=== PATIENT | male | born 1990 | race African-American/Black ===

== ENCOUNTER 2017-06-19 11:02 | Emergency (ER) | payer SELFPAY ==
[~2017-06-19] VITALS: Ht 180.3 cm; Wt 76.2 kg
--- NOTE | 2017-06-19 11:41 | Emergency Room Report ---
History of Present Illness General Chief Complaint: Medical Clearance Source: Patient Present Illness HPI 26-year-old male presents ED for evaluation. Patient brought in by [employer] and EMS. Patient found running through streets naked. Patient brought here for behavioral evaluation. Patient denies any suicidal or homicidal ideation. Denies hearing voices. Denies drug use. Denies any prior psychiatric history. No other aggravating or relieving factors. Denies any other associated symptoms Allergies: Coded Allergies: No Known Allergies (Unverified , 06/19/17) Patient History Past Medical History: none Past Surgical History: none Pertinent Family History: none Social History: Denies: smoking, alcohol use, drug use Immunizations: UTD Reviewed Nursing Documentation: PMH: Agreed; PSxH: Agreed Nursing Documentation-PMH Past Medical History: No Stated History Review of Systems All Other Systems: negative except mentioned in HPI Physical Exam Vital Signs Date Time Temp Pulse Resp B/P (MAP) Pulse Ox O2 Delivery O2 Flow Rate FiO2 06/19/17 10:56 97.5 116 20 140/72 98 Room Air 97.5 Sp02 EP Interpretation: reviewed, normal General Appearance: no apparent distress, alert, GCS 15, non-toxic Head: normocephalic, atraumatic Eyes: bilateral eye normal inspection, bilateral eye PERRL ENT: hearing grossly normal, normal pharynx, no angioedema, normal voice Neck: full range of motion, supple/symm/no masses Respiratory: chest non-tender, lungs clear, normal breath sounds, speaking full sentences Cardiovascular #1: regular rate, rhythm, no edema Cardiovascular #2: 2+ carotid (R), 2+ carotid (L), 2+ radial (R), 2+ radial (L) , 2+ dorsalis pedis (R), 2+ dorsalis pedis (L) Gastrointestinal: normal bowel sounds, non tender, soft, non-distended, no guarding, no rebound Rectal: deferred Genitourinary: normal inspection, no CVA tenderness Musculoskeletal: back normal, gait/station normal, normal range of motion, non- tender Neurologic: alert, oriented x3, responsive, motor strength/tone normal, sensory intact, speech normal Psychiatric: mood/affect normal, no suicidal/homicidal ideation, no delusions, anxious Reflexes: 3+ bicep (R), 3+ bicep (L), 3+ tricep (R), 3+ tricep (L), 3+ knee (R) , 3+ knee (L) Skin: normal color, no rash, warm/dry, well hydrated Lymphatic: no adenopathy Medical Decision Making Diagnostic Impression: Primary Impression: Substance abuse ER Course Hospital Course 26 yo M brought to ED running through street. denies SI/HI Differential diagnoses include: Psychosis, EtOH, drug abuse Clinical course patient placed on stretcher. On secured entrance monitor. After initial history and physical ordered labs Labs reviewed-electrolytes okay, no leukocytosis, hemoglobin/hematocrit stable, tox panel + THC Patient on longer in police custody. Not on hold. No psychiatric history. Patient states he's been stressed because he is having trouble with his . Dr. Cates (psychiatry) evaluated patient at bedside. Agree the patient is not danger to himself or others. However does history of substance abuse. Does not require inpatient evaluation. patient will be discharged with family i. I feel this is a highly complex case requiring extensive working including EKG/Rhythm strip, Xray/CT/US, Blood/urine lab work, repeat exams while in ED, and administration of strong opiates/narcotics for pain control, admission to hospital or close patient follow up. Diagnosis - substance abuse Stable and discharged to home. Followup with PMD. Return to ED if symptoms recur or worsen Labs Test 06/19/17 11:32 White Blood Count 11.8 K/UL (4.8-10.8) Red Blood Count 4.35 M/UL (4.70-6.10) Hemoglobin 14.0 G/DL (14.2-18.0) Hematocrit 41.1 % (42.0-52.0) Mean Corpuscular Volume 95 FL (80-99) Mean Corpuscular Hemoglobin 32.3 PG (27.0-31.0) Mean Corpuscular Hemoglobin Concent 34.2 G/DL (32.0-36.0) Red Cell Distribution Width 10.7 % (11.6-14.8) Platelet Count 358 K/UL (150-450) Mean Platelet Volume 5.7 FL (6.5-10.1) Neutrophils (%) (Auto) 76.8 % (45.0-75.0) Lymphocytes (%) (Auto) 13.5 % (20.0-45.0) Monocytes (%) (Auto) 8.2 % (1.0-10.0) Eosinophils (%) (Auto) 0.5 % (0.0-3.0) Basophils (%) (Auto) 1.0 % (0.0-2.0) Sodium Level 142 MMOL/L (136-145) Potassium Level 3.6 MMOL/L (3.5-5.1) Chloride Level 106 MMOL/L (98-107) Carbon Dioxide Level 27 MMOL/L (21-32) Anion Gap 9 mmol/L (5-15) Blood Urea Nitrogen 11 mg/dL (7-18) Creatinine 1.1 MG/DL (0.55-1.30) Estimat Glomerular Filtration Rate > 60 mL/min (>60) Glucose Level 120 MG/DL (74-106) Calcium Level 8.7 MG/DL (8.5-10.1) Total Bilirubin 0.3 MG/DL (0.2-1.0) Aspartate Amino Transf (AST/SGOT) 29 U/L (15-37) Alanine Aminotransferase (ALT/SGPT) 29 U/L (12-78) Alkaline Phosphatase 78 U/L (46-116) Total Protein 7.1 G/DL (6.4-8.2) Albumin 3.4 G/DL (3.4-5.0) Globulin 3.7 g/dL Albumin/Globulin Ratio 0.9 (1.0-2.7) Salicylates Level 2.5 ug/mL (2.8-20) Urine Opiates Screen Negative (NEGATIVE) Acetaminophen Level < 2 MCG/ML (10-30) Urine Barbiturates Screen Negative (NEGATIVE) Phencyclidine (PCP) Screen Negative (NEGATIVE) Urine Amphetamines Screen Negative (NEGATIVE) Urine Benzodiazepines Screen Negative (NEGATIVE) Urine Cocaine Screen Negative (NEGATIVE) Urine Marijuana (THC) Screen Positive (NEGATIVE) Serum Alcohol < 3 mg/dL Last Vital Signs Date Time Temp Pulse Resp B/P (MAP) Pulse Ox O2 Delivery O2 Flow Rate FiO2 06/19/17 10:56 97.5 116 20 140/72 98 Room Air 97.5 Status: improved Disposition: HOME, SELF-CARE Condition: Stable Scripts No Active Prescriptions or Reported Meds MICHEL PRADHAN M.D. Jun 19, 2017 11:41
[2017-06-19 11:46] LABS: EOSINOPHILS % (AUTO) 0.5 % (0.0-3.0); HEMATOCRIT 41.1 % (42.0-52.0); LYMPHOCYTES % (AUTO) 13.5 % (20.0-45.0); MEAN CORPUSCULAR VOLUME 95 FL (80-99); MONOCYTES % (AUTO) 8.2 % (1.0-10.0); NEUTROPHILS % (AUTO) 76.8 % (45.0-75.0); PLATELET COUNT 358 K/UL (150-450); RED BLOOD COUNT 4.35 M/UL (4.70-6.10); RED CELL DISTRIBUTION WIDTH 10.7 % (11.6-14.8); WHITE BLOOD COUNT 11.8 K/UL (4.8-10.8)
[2017-06-19 12:06] LABS: ANION GAP 9 mmol/L (5-15); BLOOD UREA NITROGEN 11 mg/dL (7-18); CALCIUM 8.7 MG/DL (8.5-10.1); CARBON DIOXIDE 27 MMOL/L (21-32); CHLORIDE 106 MMOL/L (98-107); CREATININE 1.1 MG/DL (0.55-1.30); POTASSIUM 3.6 MMOL/L (3.5-5.1); SODIUM 142 MMOL/L (136-145)
[2017-06-19 12:15] LABS: ALANINE AMINOTRANSFERASE 29 U/L (12-78); ALBUMIN 3.4 G/DL (3.4-5.0); ALBUMIN/GLOBULIN RATIO 0.9 (1.0-2.7); ALKALINE PHOSPHATASE 78 U/L (46-116); ASPARTATE AMINO TRANSFERASE 29 U/L (15-37); BILIRUBIN,TOTAL 0.3 MG/DL (0.2-1.0)
[2017-06-19 15:03] VITALS: BP 133/71
--- NOTE | 2017-06-21 08:46 | Consultation ---
DATE OF CONSULTATION: 06/19/2017 CONSULTING PHYSICIAN: HISTORY OF PRESENT ILLNESS: This is a 26-year-old male, who was brought in to the emergency room, who was walking naked in the street. He was delusional and was not making any sense. When he was brought into the emergency room, he admitted that he has been smoking excessive marijuana and his system was positive for cannabis. He is apparently going through separation/divorce and has not been coping with it well. We contacted his mother, who stated that the patient has been getting high and going from places to places and not able to alleviate his anxiety. During the evaluation, he did not endorse any psychotic symptoms, suicidal or homicidal ideations. He stated that he is stressed out about his marriage and he is trying to alleviate his anxiety with marijuana. He refused psychiatric care. He also refused medications in our ER to leave and did not want to go to receive any psychiatric care or followups. PAST PSYCHIATRIC HISTORY: He denied any psychiatric hospitalization. Mother also stated to our nurse that he has never been to a psychiatric hospital seeing a psychiatrist. PAST MEDICAL HISTORY: None. ALLERGIES: No known drug allergies. SUBSTANCE ABUSE HISTORY: He has being using cannabis for years. MENTAL STATUS EXAMINATION: The patient is awake, alert, and oriented times self, place, situation, and date. Cooperative and pleasant. Mood was mildly anxious. Affect was full range, congruent with mood. Thought process is linear. Thought content, no suicidal or homicidal ideations. No delusions. No auditory or visual hallucinations. Insight and judgment was fair. ASSESSMENT: Conrad I Cannabis dependence. Conrad II Deferred. Conrad III None. Conrad IV Low to moderate. Conrad V Global assessment of functioning is 60. PLAN: 1. The patient is not an imminent danger to self or others. Not a 5150 hold necessary at this time. 2. The patient refused the outpatient psychiatrist as well. 3. The patient was discharged to family. Tor Cates M.D. DR: Swathi JOB#: [id number] CC:
== END 2017-06-19 15:09 | disposition home or self-care (01) ==
LOC: EDBD 11:02 → EMR 11:30
DX: F12.20 Cannabis dependence, uncomplicated (principal)
CPT/HCPCS: 36415; 80053; 80307; 85025; 99282; G0480; 80329